=== PATIENT | male | born 2000 | race Caucasian/White ===

== ENCOUNTER 2020-09-21 23:35 | Inpatient (IN) | payer SELFPAY ==
[2020-09-22 00:37] VITALS: BMI 22.1
[2020-09-22 00:38] VITALS: BP 125/70; PULSE 71; RESP 17; TEMP 36.7; O2SAT 98
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
[2020-09-22 06:00] VITALS: BP 114/69; PULSE 64; RESP 16; TEMP 36.7; O2SAT 98
[2020-09-22] MEDS: sulfamethoxazole-trimeth DS 160-800 mg Tablet 1 TAB PO ×2 (08:54→21:16)
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
[2020-09-22 14:00] VITALS: BP 138/66; PULSE 74; RESP 16; TEMP 37.7; O2SAT 99
[2020-09-22] MEDS: citalopram 20 mg Tablet 10 MG PO (14:12)
[2020-09-22] MEDS: nicotine 2 mg Gum BUCCAL (19:15)
--- NOTE | 2020-09-22 21:17 | PC.NURSE ---
Addendum entered by Brianna Fernandez RN 09/23/20 00:24: Pt is resting Original Note: PRN Trazodone Trazodone 50mg PO, given to help pt rest.
[2020-09-22] MEDS: trazodone 50 mg Tablet PO (21:25)
[2020-09-22] MEDS: hyDROXYzine 25 mg Capsule 50 MG PO (21:25)
--- NOTE | 2020-09-22 21:25 | PC.NURSE ---
Addendum entered by Brianna Fernandez RN 09/23/20 00:24: pt is not anxious at this time Original Note: Prn Vistaril Pt is anxious and requested medication
[2020-09-22 22:00] VITALS: BP 125/82; PULSE 97; RESP 18; TEMP 37.7; O2SAT 95
[2020-09-23 06:00] VITALS: BP 114/60; PULSE 82; RESP 16; TEMP 36.8; O2SAT 98
[2020-09-23] MEDS: sulfamethoxazole-trimeth DS 160-800 mg Tablet 1 TAB PO ×2 (09:09→21:08)
[2020-09-23] MEDS: citalopram 20 mg Tablet 10 MG PO (09:09)
--- NOTE | 2020-09-23 12:01 | PM.NPN ---
Subjective NPU Subjective: Interval history: Patient reports feeling much better today, denies any interval depressive symptoms, denies any suicidal ideation Patient reports transient anxiety after taking his first dose of antidepressant but states that he was no longer anxious afterward, denies any interval panic symptoms or panic attacks Denies any interval psychotic symptoms Reports being compliant with medication and denies any medication side effects Per staff report, no interval behavioral disturbances Mental Status Exam MSE Comments: Sitting on his bed in his room, polite, interactive, appropriately groomed and dressed, good eye contact Speech is normal rate, volume, spontaneous, clear articulation, not pressured Psychomotor activity is somewhat decreased, no agitation I feel good, full range, not labile Alert and oriented to person, place, time, situation Memory and concentration appear to be intact per review Thought process, linear, no flight of ideas, no looseness of associations Thought content, no delusions, no hallucinations, no suicidal or homicidal ideation Insight and judgment appear to be intact Vitals/I&O/Wt Last Vital Signs Temp 98.2 F 09/23/20 06:00 Pulse 82 09/23/20 06:00 Resp 16 09/23/20 06:00 BP 114/60 09/23/20 06:00 Pulse Ox 98 09/23/20 06:00 Weight last 48 hrs Weight 69.8 kg Weight 65.771 kg A&P Assessment and plan (1) Suicidal ideation: Status: Acute (2) Depressive disorder: Status: Acute Additional A&P Information Improved, denies any interval suicidal ideation CONTINUE current medication, continue to monitor Involuntary Hold Information 96 Hour Hold: 96 Hour Involuntary Admission: Yes 96 Hour Hold Ending Date: 09/27/20 96 Hour Hold Ending Time: 23:35 Attestations NPU Medical Necessity Statement*: Continues to require psychiatric hospitalization for medication stabilization, coordination for safe discharge Coding Level of Care Code Acute [employer] Specialist for [facility] Fwd Diagnoses Suicidal ideation R45.851 Depressive disorder F32.9
[2020-09-23 14:00] VITALS: BP 114/60; PULSE 82; RESP 16; TEMP 36.8; O2SAT 98
[2020-09-23 16:05] VITALS: BP 126/71; PULSE 75; RESP 18; TEMP 36.9; O2SAT 97
[2020-09-23 19:47] VITALS: BP 115/68; PULSE 72; RESP 17; TEMP 37.4; O2SAT 97
[2020-09-23] MEDS: trazodone 50 mg Tablet PO (21:08)
[2020-09-24 06:00] VITALS: BP 119/77; PULSE 70; RESP 18; TEMP 36.8; O2SAT 98
[2020-09-24] MEDS: citalopram 20 mg Tablet 10 MG PO (08:25)
[2020-09-24] MEDS: sulfamethoxazole-trimeth DS 160-800 mg Tablet 1 TAB PO (08:27)
--- NOTE | 2020-09-24 09:45 | PM.NDC ---
Diagnoses at Discharge Discharge Diagnosis (1) Suicidal ideation: Status: Acute (2) Depressive disorder: Status: Acute Reason for Visit Reason for Visit: SI Hospital Course Hospital Course 20 year old male with no past psychiatric history presented to an outlying emergency department with worsening depressive symptoms and suicidal ideation stating that he did not want to live anymore and reported that he would either shoot himself or hang himself. Patient denied any past psychiatric treatment, no treatment medication and no past counseling or therapy targeting his depressive symptoms. He reports multiple stressors to include frequent moves, unsteady living arrangement, financial stressors that exacerbate his depressive symptoms. Patient was continued to report depressive symptoms at the time of initial evaluation but was no longer endorsing suicidal ideation. Patient reported recent stressors had exacerbated his thoughts but further clarified that he had no active intent or plan of ending his life. Patient was started on citalopram which was titrated up to citalopram 20 mg which he tolerated well and reported no medication side effects. Patient also participated in unit activities to include group sessions, unit milieu with no reports of any behavioral disturbances. Patient reported significant improvement of his depressive symptoms over a few days and remain future oriented. Patient was not suicidal and did not endorse any psychiatric symptoms at the time of discharge and did not appear to pose an imminent threat of harm to self or others. Low to moderate risk given no current suicidal ideation and not currently endorsing any psychiatric symptoms although patient may elevate his risk if he continues to abuse substances or alcohol or is noncompliant with his follow-up treatment leading to unexpected, impulsive behavior. Risk mitigation included psychiatric hospitalization, medication stabilization, recommendation to abstain from use of substances and alcohol as well as the need for compliance with his medication, medication management and therapy follow-up targeting the development of more adaptive coping strategies. Patient was daily communicate his understanding of the need to abstain from the use of substance and alcohol as well as the need for compliance with his medication, medication management and therapy follow-up as well as need for substance counseling in order to further mitigate his risk of harm to self and others. Involuntary Hold Information 96 Hour Hold: 96 Hour Involuntary Admission: Yes 96 Hour Hold Ending Date: 09/27/20 96 Hour Hold Ending Time: 23:35 Mental Status Exam MSE Comments: Sitting in the day room, calm, cooperative, appropriately groomed and dressed, good eye contact Speech is normal rate, volume, spontaneous, clear articulation, not pressured Psychomotor activity is somewhat decreased, no agitation Good, full range, smiles appropriately at times during interview, not labile Alert and oriented to person, place, time, situation Memory and concentration appear to be intact per review Thought process, linear, no flight of ideas, no looseness of associations Thought content, no delusions, no hallucinations, no suicidal or homicidal ideation Insight and judgment appear to be intact Discharge Data Vitals: Last Vital Signs Temp 98.2 F 09/24/20 06:00 Pulse 70 09/24/20 06:00 Resp 18 09/24/20 06:00 BP 119/77 09/24/20 06:00 Pulse Ox 98 09/24/20 06:00 Discharge Plan Discharge Patient Disposition: Home Condition: Stable Prescriptions: New citalopram 20 mg Tablet 10 mg PO DAILY Qty: 60 RF: 0 Continued sulfamethoxazole-trimethoprim [Bactrim DS] 800-160 mg tablet See Rx Instructions .ROUTE .COMPLEX RF: 0 Referrals: [facility] [Other] (Contact was with Christa and she stated they will contact you after discharge for counseling services. Contact [facility] if you have not heard anything one week after discharge.) Discharge Diet: Regular Discharge Activity: Resume usual activity Patient Instructions: Opioid Safety Discharge Attestations NPU Time Spent in Discharge Care*: greater than 30 min Status at Discharge: Cognitive status at discharge: cognitively intact, Behavioral status at discharge: cooperative, Functional status at discharge: independent ambulation Overall status at discharge: patient is back to baseline Coding Level of Care Code Acute Chg FW [place] note Diagnoses Suicidal ideation R45.851 Depressive disorder F32.9
[2020-09-24 11:09] VITALS: BP 119/77; PULSE 70; RESP 18; TEMP 36.8; O2SAT 98
== END 2020-09-24 11:50 | disposition home or self-care (01) | DRG 881 ==
PROVIDERS: Admitting Provider Psychiatry & Neurology Psychiatry; Visit Provider Psychiatry & Neurology Psychiatry
DX: F32.9 Major depressive disorder, single episode, unspecified (principal); R45.851 Suicidal ideations; F43.10 Post-traumatic stress disorder, unspecified; F41.9 Anxiety disorder, unspecified; F17.210 Nicotine dependence, cigarettes, uncomplicated; Z81.8 Family history of other mental and behavioral disorders; Z81.1 Family history of alcohol abuse and dependence